=== PATIENT | female | born 1965 | race Hispanic/Latino ===

== ENCOUNTER 2021-01-27 12:28 | Emergency (ER) | payer SELFPAY ==
[2021-01-27] MEDS ORDERED: Acetaminophen 325 MG TAB ONE (14:18)
[2021-01-27] MEDS ORDERED: Ibuprofen 200 MG TAB ONE (14:22)
[2021-01-27 14:27] LABS: Bilirubin Neg (Negative); Blood, Urine 50 (Negative); Clarity Clear (Clear); Glucose, Urine (Dipstick) 50 mg/dL (Negative); Ketone, Urine Negative (Negative); Leukocyte 500 (Negative); Nitrite Negative (Negative); Protein, Urine (Dipstick) 15 mg/dl (Neg-Trace); Urobilinogen Normal mg/dL (Less than 2)
[2021-01-27 14:49] LABS: WBC/HPF 21-50 HPF (0-3)
[2021-01-27 14:53] LABS: Squamous Epithelial 0-3 HPF (0-3)
[2021-01-27 14:55] LABS: Bacteria/HPF 1+ HPF (None Seen)
[2021-01-27] MEDS ORDERED: cefTRIAXone\\ROCEPHIN 500 MG VIAL ONE (15:18)
[2021-01-27] MEDS ORDERED: Sterile Water 0 ML ONE (15:19)
[2021-01-27] MEDS ORDERED: Lidocaine 1% (PF) 30 ML VIAL ONE (15:20)
[2021-01-28 20:36] LABS: Chlamydia by PCR Not Detected (NotDetected); GC by PCR Not Detected (NotDetected)
== END 2021-01-27 16:04 | disposition home or self-care (01) ==
LOC: CSHERS 12:28
DX: N39.0 Urinary tract infection, site not specified (principal); B37.3 Candidiasis of vulva and vagina; E11.9 Type 2 diabetes mellitus without complications; K21.9 Gastro-esophageal reflux disease without esophagitis; E78.5 Hyperlipidemia, unspecified; E78.00 Pure hypercholesterolemia, unspecified; I10 Essential (primary) hypertension; Z79.899 Other long term (current) drug therapy
CPT/HCPCS: 81003; 81015; 87086; 87480; 87491; 87510; 87591; 87660; 96372; 99283; J0696; J2001

== ENCOUNTER 2021-01-28 00:10 | Inpatient (IN) | payer SELFPAY ==
[2021-01-28 01:12] LABS: #Monocytes 0.9 10x3/uL (0.0-1.1); #Neutrophils 11.2 10x3/uL (1.5-8.4); %Basophils 0.2 % (0.0-2.0); %Eosinophils 0.1 % (0.0-6.0); %Lymphocytes 10.1 % (18.0-47.0); %Monocytes 6.6 % (0.0-10.0); %Neutrophils 82.4 % (40.0-75.0); Hemoglobin 9.3 g/dL (12.0-15.5); Mean Corpuscular HGB CONC 35.1 g/dL (32.0-36.0); Mean Corpuscular Hemoglobin 30.1 pg (27.0-33.0); Mean Corpuscular Volume 85.8 fl (81.6-98.3); Mean Platelet Volume 8.9 fl (7.4-10.4); Platelet Count 241 10x3/uL (150-450); RBC Distribution Width 11.3 % (11.5-14.5); Red Blood Cell (RBC) Count 3.09 10x6/uL (3.90-5.03); White Blood Cell (WBC) Count 13.6 10x3/uL (3.5-10.5)
[2021-01-28] MEDS ORDERED: Aspirin Chewable 81 MG TAB ONE (02:33)
[2021-01-28] MEDS ORDERED: Mag-Al Plus 1200 MG/1200 MG/120 MG/30 ML UDCUP ONE ×2 (03:04→08:47)
[2021-01-28 03:12] LABS: Anion Gap 15 mmol/L (10-20); BUN (Urea Nitrogen) 11 mg/dL (9.8-20.1); Calc. Creatinine Clearance 0 mL/min (70-130); Calcium 8.4 mg/dL (7.8-10.44); Carbon Dioxide 22 mmol/L (22-29); Chloride 81 mmol/L (98-107); Glucose 191 mg/dL (70-105); Potassium 3.3 mmol/L (3.5-5.1)
[2021-01-28 03:15] LABS: Troponin I Less than 0.010 ng/mL (< 0.028)
[2021-01-28 03:40] LABS: Sodium 115 mmol/L (136-145)
[2021-01-28] MEDS ORDERED: Potassium Chloride 20 MEQ TAB ONE (03:57)
[2021-01-28] MEDS ORDERED: cefTRIAXone\\ROCEPHIN 1 GM VIAL ONE (03:57)
[2021-01-28] MEDS ORDERED: Guaifenesin DM 100-10/5 ML UDCUP PO PRN (05:34)
[2021-01-28] MEDS ORDERED: Senokot S 8.6-50 MG TAB PO PRN (05:34)
[2021-01-28] MEDS ORDERED: Acetaminophen 325 MG TAB PO PRN (05:34)
[2021-01-28] MEDS ORDERED: Ondansetron PF 4 MG/2 ML Vial IVP PRN (05:34)
[2021-01-28] MEDS ORDERED: Calcium Carbonate 500 MG ChewTAB PO PRN (05:34)
[2021-01-28] MEDS ORDERED: HumaLOG 300 UNITS/3 ML VIAL SC PRN (05:59)
[2021-01-28] MEDS ORDERED: Dextrose 50% Abboject 50 ML SYRINGE SLOW IVP PRN (05:59)
[2021-01-28] MEDS ORDERED: Dextrose 5% in Water 1,000 ML IV PRN (05:59)
[2021-01-28] MEDS ORDERED: Sodium Chloride 0.9% 500 ML IV SCH (06:00)
[2021-01-28] MEDS ORDERED: Lorazepam 2 MG/ML VIAL ONE (07:23)
[2021-01-28] MEDS ORDERED: Pantoprazole 40 MG VIAL ONE (08:16)
[2021-01-28] MEDS ORDERED: Enoxaparin Sodium 40 MG/0.4 ML SYRINGE ONE (08:16)
[2021-01-28] MEDS: Enoxaparin Sodium 40 MG/0.4 ML SYRINGE SC SCH (08:20)
[2021-01-28] MEDS: Pantoprazole 40 MG VIAL IVP SCH (08:20)
[2021-01-28 08:40] LABS: Anion Gap 12 mmol/L (10-20); BUN (Urea Nitrogen) 10 mg/dL (9.8-20.1); Calc. Creatinine Clearance 0 mL/min (70-130); Calcium 8.4 mg/dL (7.8-10.44); Carbon Dioxide 25 mmol/L (22-29); Chloride 88 mmol/L (98-107); Glucose 140 mg/dL (70-105); Potassium 3.4 mmol/L (3.5-5.1); Sodium 122 mmol/L (136-145)
[2021-01-28] MEDS ORDERED: Lidocaine Viscous Sol 2% 15 ml UD Cup ONE (08:47)
[2021-01-28] MEDS: Clotrimazole 1% Cream 15 GM TUBE TOP SCH ×2 (09:00→20:27)
[2021-01-28] MEDS: Alogliptin 25 MG TAB PO SCH (09:00)
[2021-01-28] MEDS: glipiZIDE 5 MG TAB PO SCH ×2 (09:00→20:27)
[2021-01-28 11:14] LABS: Anion Gap 14 mmol/L (10-20); BUN (Urea Nitrogen) 10 mg/dL (9.8-20.1); Calc. Creatinine Clearance 0 mL/min (70-130); Calcium 8.7 mg/dL (7.8-10.44); Carbon Dioxide 24 mmol/L (22-29); Chloride 89 mmol/L (98-107); Glucose 105 mg/dL (70-105); Potassium 3.6 mmol/L (3.5-5.1); Sodium 123 mmol/L (136-145)
[2021-01-28 12:13] VITALS: BMI 26.4
[2021-01-28] MEDS: Losartan 25 MG TAB PO SCH (15:46)
[2021-01-28 16:51] LABS: SARS-CoV-2 PCR by NAA Not Detected (NotDetected)
[2021-01-28 17:38] LABS: Anion Gap 13 mmol/L (10-20); BUN (Urea Nitrogen) 10 mg/dL (9.8-20.1); Calc. Creatinine Clearance 81 mL/min (70-130); Calcium 8.5 mg/dL (7.8-10.44); Carbon Dioxide 23 mmol/L (22-29); Chloride 90 mmol/L (98-107); Glucose 179 mg/dL (70-105); Potassium 3.8 mmol/L (3.5-5.1); Sodium 122 mmol/L (136-145)
[2021-01-28 19:45] LABS: Anion Gap 13 mmol/L (10-20); BUN (Urea Nitrogen) 12 mg/dL (9.8-20.1); Calc. Creatinine Clearance 78 mL/min (70-130); Calcium 8.5 mg/dL (7.8-10.44); Carbon Dioxide 23 mmol/L (22-29); Chloride 92 mmol/L (98-107); Glucose 148 mg/dL (70-105); Potassium 3.8 mmol/L (3.5-5.1); Sodium 124 mmol/L (136-145)
[2021-01-28 23:52] LABS: Anion Gap 14 mmol/L (10-20); BUN (Urea Nitrogen) 12 mg/dL (9.8-20.1); Calc. Creatinine Clearance 79 mL/min (70-130); Calcium 8.5 mg/dL (7.8-10.44); Carbon Dioxide 22 mmol/L (22-29); Chloride 92 mmol/L (98-107); Glucose 145 mg/dL (70-105); Potassium 3.7 mmol/L (3.5-5.1); Sodium 124 mmol/L (136-145)
[2021-01-29 05:38] LABS: #Monocytes 0.8 10x3/uL (0.0-1.1); %Basophils 0.3 % (0.0-2.0); %Eosinophils 0.3 % (0.0-6.0); %Monocytes 10.5 % (0.0-10.0); %Neutrophils 64.5 % (40.0-75.0); Hemoglobin 10.2 g/dL (12.0-15.5); Mean Corpuscular HGB CONC 33.9 g/dL (32.0-36.0); Mean Corpuscular Hemoglobin 29.5 pg (27.0-33.0); Mean Platelet Volume 9.2 fl (7.4-10.4); Platelet Count 322 10x3/uL (150-450); RBC Distribution Width 11.5 % (11.5-14.5); Red Blood Cell (RBC) Count 3.46 10x6/uL (3.90-5.03); White Blood Cell (WBC) Count 7.7 10x3/uL (3.5-10.5)
[2021-01-29 05:54] LABS: Anion Gap 13 mmol/L (10-20); BUN (Urea Nitrogen) 12 mg/dL (9.8-20.1); Calc. Creatinine Clearance 76 mL/min (70-130); Calcium 8.8 mg/dL (7.8-10.44); Carbon Dioxide 27 mmol/L (22-29); Chloride 93 mmol/L (98-107); Glucose 103 mg/dL (70-105); Magnesium 1.8 mg/dL (1.6-2.6); Sodium 129 mmol/L (136-145)
[2021-01-29] MEDS ORDERED: cefTRIAXone\\ROCEPHIN 1 GM in Sodium Chloride 0.9% 100 ML IVPB SCH (06:00)
[2021-01-29] MEDS: Enoxaparin Sodium 40 MG/0.4 ML SYRINGE SC SCH (09:32)
[2021-01-29 09:33] LABS: Potassium, Urine 19.5 mmol/L
[2021-01-29] MEDS: Pantoprazole 40 MG VIAL IVP SCH (09:33)
[2021-01-29] MEDS: Losartan 25 MG TAB PO SCH (09:33)
[2021-01-29] MEDS: Alogliptin 25 MG TAB PO SCH (09:33)
[2021-01-29] MEDS: glipiZIDE 5 MG TAB PO SCH (09:33)
[2021-01-29] MEDS: Clotrimazole 1% Cream 15 GM TUBE TOP SCH (09:33)
[2021-01-29] MEDS ORDERED: Acetaminophen 325 MG TAB PO PRN (09:52)
[2021-01-29] MEDS ORDERED: Fluconazole 100 MG TAB PO SCH (10:00)
[2021-01-29 12:54] LABS: Anion Gap 12 mmol/L (10-20); BUN (Urea Nitrogen) 13 mg/dL (9.8-20.1); Calc. Creatinine Clearance 75 mL/min (70-130); Calcium 8.6 mg/dL (7.8-10.44); Carbon Dioxide 26 mmol/L (22-29); Chloride 94 mmol/L (98-107); Glucose 117 mg/dL (70-105); Potassium 4.3 mmol/L (3.5-5.1); Sodium 128 mmol/L (136-145)
[2021-01-29 17:02] VITALS: BP 108/69; TEMP 101.3
== END 2021-01-29 17:30 | disposition home or self-care (01) | DRG 641 ==
LOC: CSHERS 00:10 → UNDOADMIN 06:35 → CSHERHOLD 06:35 → CSHTELE 10:24
PROVIDERS: ADMIT Student in an Organized Health Care Education/Training Program; ATTEND Internal Medicine
DX: E87.1 Hypo-osmolality and hyponatremia (principal); N39.0 Urinary tract infection, site not specified; B96.20 Unspecified Escherichia coli [E. coli] as the cause of diseases classified elsewhere; N76.0 Acute vaginitis; B96.89 Other specified bacterial agents as the cause of diseases classified elsewhere; B37.3 Candidiasis of vulva and vagina; E87.6 Hypokalemia; I12.9 Hypertensive chronic kidney disease with stage 1 through stage 4 chronic kidney disease, or unspecified chronic kidney disease; E11.22 Type 2 diabetes mellitus with diabetic chronic kidney disease; N18.2 Chronic kidney disease, stage 2 (mild); E86.9 Volume depletion, unspecified; Z88.6 Allergy status to analgesic agent; E78.5 Hyperlipidemia, unspecified; K21.9 Gastro-esophageal reflux disease without esophagitis; Z20.822 Contact with and (suspected) exposure to COVID-19
CPT/HCPCS: 36415; 36416; 71045; 80048; 82436; 82533; 83735; 83930; 83935; 84133; 84300; 84484; 85025; 87086; 87635; 93005; 93010; 96374; 96375; C9113; J0696; J1650; J2060; J3490; U0003; U0005

== ENCOUNTER 2021-02-02 20:54 | Emergency (ER) | payer SELFPAY ==
[2021-02-02 21:55] LABS: Bilirubin Neg (Negative); Blood, Urine 25 (Negative); Clarity Clear (Clear); Glucose, Urine (Dipstick) Normal (Negative); Ketone, Urine Negative (Negative); Leukocyte 100 (Negative); Nitrite Negative (Negative); Protein, Urine (Dipstick) Negative (Neg-Trace); Specific Gravity, Urine 1.005 (1.002-1.036); Urobilinogen Normal mg/dL (Less than 2)
[2021-02-02 22:21] LABS: Bacteria/HPF Rare-Few HPF (None Seen); Mucous/LPF Rare LPF (<2+); Squamous Epithelial 0-3 HPF (0-3)
== END 2021-02-02 23:24 | disposition home or self-care (01) ==
LOC: CSHERS 20:54
DX: N89.8 Other specified noninflammatory disorders of vagina (principal); E11.9 Type 2 diabetes mellitus without complications; K21.9 Gastro-esophageal reflux disease without esophagitis; E78.5 Hyperlipidemia, unspecified; Z79.899 Other long term (current) drug therapy
CPT/HCPCS: 81003; 81015; 87086; 99283

== ENCOUNTER 2022-02-28 01:25 | Emergency (ER) | payer SELFPAY ==
[2022-02-28] MEDS ORDERED: oxyCODONE 5 MG TAB ONE ×2 (02:18→03:09)
== END 2022-02-28 03:25 | disposition home or self-care (01) ==
LOC: CSHERS 01:25
DX: M25.511 Pain in right shoulder (principal); G89.18 Other acute postprocedural pain; E11.9 Type 2 diabetes mellitus without complications; I10 Essential (primary) hypertension; E78.5 Hyperlipidemia, unspecified; E78.00 Pure hypercholesterolemia, unspecified; K21.9 Gastro-esophageal reflux disease without esophagitis
CPT/HCPCS: 99283

== ENCOUNTER 2022-04-03 09:01 | Emergency (ER) | payer SELFPAY | END 2022-04-03 09:54 | disposition home or self-care (01) | LOC: CSHERS 09:01 | DX: R05.9 Cough, unspecified (principal); E11.9 Type 2 diabetes mellitus without complications; I10 Essential (primary) hypertension; E78.00 Pure hypercholesterolemia, unspecified; E78.5 Hyperlipidemia, unspecified; K21.9 Gastro-esophageal reflux disease without esophagitis | CPT/HCPCS: 99283 ==

== ENCOUNTER 2022-05-06 19:59 | Emergency (ER) | payer SELFPAY ==
[2022-05-06 21:06] LABS: Bilirubin Neg (Negative); Blood, Urine Negative (Negative); Clarity Clear (Clear); Glucose, Urine (Dipstick) Normal (Negative); Ketone, Urine Negative (Negative); Leukocyte 25 (Negative); Nitrite Negative (Negative); Protein, Urine (Dipstick) Negative (Neg-Trace); Specific Gravity, Urine 1.005 (1.002-1.036); Urobilinogen Normal mg/dL (Less than 2)
[2022-05-06 21:22] LABS: #Eosinphils 0.2 10x3/uL (0.0-0.5); #Monocytes 0.5 10x3/uL (0.0-1.1); %Basophils 0.2 % (0.0-2.0); %Eosinophils 1.8 % (0.0-6.0); %Lymphocytes 26.1 % (18.0-47.0); %Monocytes 5.5 % (0.0-10.0); %Neutrophils 66.1 % (40.0-75.0); Hemoglobin 10.9 g/dL (12.0-15.5); Mean Corpuscular HGB CONC 34.5 g/dL (32.0-36.0); Mean Corpuscular Hemoglobin 30.3 pg (27.0-33.0); Mean Corpuscular Volume 87.8 fl (81.6-98.3); Mean Platelet Volume 8.6 fl (7.4-10.4); Platelet Count 341 10x3/uL (150-450); RBC Distribution Width 11.9 % (11.5-14.5); White Blood Cell (WBC) Count 9.1 10x3/uL (3.5-10.5)
[2022-05-06 21:22] LABS: Bacteria/HPF Rare-Few HPF (None Seen); RBC/HPF 0-3 HPF (0-3); Squamous Epithelial 0-3 HPF (0-3); Transitional Epithelial 0-3 HPF (None Seen)
[2022-05-06 21:31] LABS: ALT (SGPT) 34 U/L (8-55); AST (SGOT) 31 U/L (5-34); Albumin 4.3 g/dL (3.5-5.0); Alkaline Phosphatase 64 U/L (40-110); Anion Gap 15 mmol/L (10-20); BUN (Urea Nitrogen) 13 mg/dL (9.8-20.1); Bilirubin, Total 0.2 mg/dL (0.2-1.2); Calc. Creatinine Clearance 0 mL/min (70-130); Calcium 9.6 mg/dL (7.8-10.44); Carbon Dioxide 24 mmol/L (22-29); Chloride 91 mmol/L (98-107); Estimated GFR 74; Globulin 3.7 g/dL (2.4-3.5); Glucose 124 mg/dL (70-105); Potassium 4.2 mmol/L (3.5-5.1); Sodium 126 mmol/L (136-145)
== END 2022-05-06 23:57 | disposition home or self-care (01) ==
LOC: CSHERS 19:59
DX: E87.1 Hypo-osmolality and hyponatremia (principal); E11.9 Type 2 diabetes mellitus without complications; K21.9 Gastro-esophageal reflux disease without esophagitis; E78.5 Hyperlipidemia, unspecified; I10 Essential (primary) hypertension
CPT/HCPCS: 36415; 36416; 80053; 81003; 81015; 85025; 99284

== ENCOUNTER 2022-09-27 15:55 | Emergency (ER) | payer SELFPAY ==
[2022-09-27 17:06] LABS: Bilirubin Neg (Negative); Blood, Urine Negative (Negative); Glucose, Urine (Dipstick) Normal (Negative); Ketone, Urine Negative (Negative); Leukocyte Negative (Negative); Nitrite Negative (Negative); Protein, Urine (Dipstick) Negative (Neg-Trace); Specific Gravity, Urine 1.005 (1.005-1.030); Urobilinogen Normal mg/dL (Less than 2)
[2022-09-27 17:07] LABS: Clarity Clear (Clear)
[2022-09-27 17:25] LABS: #Eosinphils 0.3 10x3/uL (0.0-0.5); #Monocytes 0.5 10x3/uL (0.0-1.1); #Neutrophils 6.1 10x3/uL (1.5-8.4); %Basophils 0.2 % (0.0-2.0); %Lymphocytes 30.9 % (18.0-47.0); %Monocytes 4.9 % (0.0-10.0); %Neutrophils 60.7 % (40.0-75.0); Hemoglobin 10.6 g/dL (12.0-15.5); Mean Corpuscular Hemoglobin 30.5 pg (27.0-33.0); Mean Corpuscular Volume 87.3 fl (81.6-98.3); Mean Platelet Volume 8.9 fl (7.4-10.4); Platelet Count 346 10x3/uL (150-450); RBC Distribution Width 11.8 % (11.5-14.5); Red Blood Cell (RBC) Count 3.47 10x6/uL (3.90-5.03); White Blood Cell (WBC) Count 10.1 10x3/uL (3.5-10.5)
[2022-09-27 17:43] LABS: ALT (SGPT) 21 U/L (8-55); AST (SGOT) 25 U/L (5-34); Albumin 4.2 g/dL (3.5-5.0); Alkaline Phosphatase 54 U/L (40-110); Anion Gap 14 mmol/L (10-20); BUN (Urea Nitrogen) 20 mg/dL (9.8-20.1); Bilirubin, Total 0.4 mg/dL (0.2-1.2); Calc. Creatinine Clearance 0 mL/min (70-130); Carbon Dioxide 24 mmol/L (22-29); Chloride 95 mmol/L (98-107); Estimated GFR 62; Globulin 3.1 g/dL (2.4-3.5); Glucose 110 mg/dL (70-105); Lipase 39 U/L (8-78); Potassium 3.7 mmol/L (3.5-5.1); Protein, Total 7.3 g/dL (6.0-8.3); Sodium 129 mmol/L (136-145)
== END 2022-09-27 19:19 | disposition home or self-care (01) ==
LOC: CSHERS 15:55
DX: E11.9 Type 2 diabetes mellitus without complications (principal); I10 Essential (primary) hypertension; E78.5 Hyperlipidemia, unspecified; K21.9 Gastro-esophageal reflux disease without esophagitis
CPT/HCPCS: 36416; 80053; 81003; 83690; 84484; 85025; 93005; 96360; 96361